=== PATIENT | female | born 1945 | race African-American/Black ===

== ENCOUNTER 2017-03-11 20:44 | Inpatient (IN) | payer MEDICARE ==
[~2017-03-11] VITALS: Ht 170.2 cm; Wt 84.8 kg
[2017-03-11] VITALS: BP 138/61
[2017-03-11 20:00] VITALS: BP 140/61
[2017-03-11] MEDS ORDERED: Potassium Chloride 10 MEQ in D5 1/2NS 1,000 ML IV SCH (21:45)
[2017-03-11] MEDS: Heparin 5000 units/ml inj SUBQ SCH (22:00)
[2017-03-11] MEDS: D5 1/2NS 1,000 ML IV SCH (22:46)
[2017-03-12] VITALS: BP 138/61
[2017-03-12 04:29] VITALS: BP 133/65
[2017-03-12 05:21] LABS: APPEARANCE,URINE CLEAR; KETONES,URINE NEGATIVE (NEGATIVE); LEUKOCYTE ESTERASE ,URINE 3+ (NEGATIVE); NITRITE,URINE NEGATIVE (NEGATIVE); PH,URINE 5 (4.5-8.0); PROTEIN,URINE NEGATIVE (NEGATIVE); UROBILINOGEN,URINE NORMAL MG/DL (0.0-1.0)
[2017-03-12] MEDS ORDERED: RIVASTIGMINE3 MG PO (05:21)
[2017-03-12] MEDS ORDERED: IBUPROFEN600 MG ORAL (05:28)
[2017-03-12] MEDS ORDERED: GABAPENTIN100 MG ORAL (05:28)
[2017-03-12] MEDS ORDERED: NAMENDA5 MG ORAL (05:28)
[2017-03-12] MEDS ORDERED: SINEMET 25-1001 EAC1 ORAL (05:28)
[2017-03-12] MEDS ORDERED: LOPRESSOR5 MG/5 ML IV (05:28)
[2017-03-12] MEDS ORDERED: PEPCID40 MG PO (05:28)
[2017-03-12] MEDS ORDERED: Lopressor (05:35)
[2017-03-12] MEDS ORDERED: A AND D (05:35)
[2017-03-12 06:40] LABS: WBC,URINE TNTC /HPF (0 - 2)
[2017-03-12 06:41] LABS: BACTERIA,URINE FEW /HPF; SQUAMOUS EPITHELIAL CELL,UR FEW /LPF (NONE/OCC)
[2017-03-12 08:00] VITALS: BP 150/74
[2017-03-12 08:04] LABS: BASOPHILS % (AUTO) 1.2 % (0.0-2.0); LYMPHOCYTES % (AUTO) 41.4 % (20.0-45.0); MEAN CORPUSCULAR HEMOGLOBIN 25.3 PG (27.0-31.0); MEAN CORPUSCULAR HGB CONC 29.4 G/DL (32.0-36.0); MEAN CORPUSCULAR VOLUME 86 FL (80-99); MONOCYTES % (AUTO) 7.4 % (1.0-10.0); NEUTROPHILS % (AUTO) 49.1 % (45.0-75.0); PLATELET COUNT 255 K/UL (150-450); RED CELL DISTRIBUTION WIDTH 14.4 % (11.6-14.8); WHITE BLOOD COUNT 7.5 K/UL (4.8-10.8)
[2017-03-12 08:13] LABS: ANION GAP 9 mmol/L (5-15); CALCIUM 9.3 MG/DL (8.5-10.1); CARBON DIOXIDE 27 MMOL/L (21-32); CHLORIDE 102 MMOL/L (98-107); CREATININE 0.8 MG/DL (0.55-1.30); GLOMERULAR FILTRATION RATE > 60 mL/min (>60); POTASSIUM 4.4 MMOL/L (3.5-5.1); SODIUM 138 MMOL/L (136-145)
[2017-03-12] MEDS: Memantine 5 MG TAB ORAL SCH ×2 (09:05→17:26)
[2017-03-12] MEDS: Exelon 1.5mg cap ORAL SCH ×2 (09:05→17:26)
[2017-03-12] MEDS: Sinemet 25/100 tab ORAL SCH ×3 (09:05→20:46)
[2017-03-12] MEDS: Metoprolol 25mg tab ORAL SCH (09:09)
[2017-03-12] MEDS: Heparin 5000 units/ml inj SUBQ SCH ×2 (09:10→20:48)
[2017-03-12] MEDS: Vitamin A&D Oint 2oz Tube TOPIC SCH (09:18)
--- NOTE | 2017-03-12 11:30 | Consultation ---
History of Present Illness Present Illness HPI 71 yo female with mmp Allergies: Coded Allergies: No Known Allergies (Unverified , 03/11/17) Medication History Scheduled Carbidopa/Levodopa 25-100 Mg* (Sinemet 25-100 Mg Tablet*), 1 TAB ORAL THREE TIMES A DAY, (Reported) Famotidine (Pepcid), 40 MG PO QHS, (Reported) Gabapentin* (Gabapentin*), 100 MG ORAL THREE TIMES A DAY, (Reported) Memantine Hcl* (Namenda*), 5 MG ORAL TWICE A DAY, (Reported) Scheduled PRN Ibuprofen* (Motrin*), 600 MG ORAL Q6H PRN for For Pain, (Reported) Miscellaneous Medications Rivastigmine Tartrate (Rivastigmine), 3 MG PO, (Reported) [A and D Ointment], (Reported) [Lopressor ], (Reported) Patient History Healthcare decision maker N Resuscitation status Advanced Directive on File Physical Exam Last 24 Hour Vital Signs Date Time Temp Pulse Resp B/P (MAP) Pulse Ox O2 Delivery O2 Flow Rate FiO2 03/12/17 09:09 92 150/74 03/12/17 08:00 97.7 92 20 150/74 98 03/12/17 04:29 97.8 84 19 133/65 97 03/12/17 00:00 97.8 83 20 138/61 96 03/11/17 20:00 98.1 88 20 140/61 96 Intake and Output 03/12/17 03/13/17 19:00 07:00 Intake Total 240 ml Balance 240 ml Intake Oral 240 ml # Voids 2 Laboratory Tests Test 03/12/17 05:00 03/12/17 06:52 Urine Color Pale yellow Urine Appearance Clear Urine pH 5 (4.5-8.0) Urine Specific [place] 1.010 (1.005-1.035) Urine Protein Negative (NEGATIVE) Urine Glucose (UA) Negative (NEGATIVE) Urine Ketones Negative (NEGATIVE) Urine Occult Blood 1+ (NEGATIVE) H Urine Nitrite Negative (NEGATIVE) Urine Bilirubin Negative (NEGATIVE) Urine Urobilinogen Normal MG/DL (0.0-1.0) Urine Leukocyte Esterase 3+ (NEGATIVE) H Urine RBC 2-4 /HPF (0 - 2) H Urine WBC Tntc /HPF (0 - 2) H Urine Squamous Epithelial Cells Few /LPF (NONE/OCC) Urine Bacteria Few /HPF (NONE) White Blood Count 7.5 K/UL (4.8-10.8) Red Blood Count 5.00 M/UL (4.20-5.40) Hemoglobin 12.7 G/DL (12.0-16.0) Hematocrit 43.1 % (37.0-47.0) Mean Corpuscular Volume 86 FL (80-99) Mean Corpuscular Hemoglobin 25.3 PG (27.0-31.0) L Mean Corpuscular Hemoglobin Concent 29.4 G/DL (32.0-36.0) L Red Cell Distribution Width 14.4 % (11.6-14.8) Platelet Count 255 K/UL (150-450) Mean Platelet Volume 6.0 FL (6.5-10.1) L Neutrophils (%) (Auto) 49.1 % (45.0-75.0) Lymphocytes (%) (Auto) 41.4 % (20.0-45.0) Monocytes (%) (Auto) 7.4 % (1.0-10.0) Eosinophils (%) (Auto) 1.0 % (0.0-3.0) Basophils (%) (Auto) 1.2 % (0.0-2.0) Sodium Level 138 MMOL/L (136-145) Potassium Level 4.4 MMOL/L (3.5-5.1) Chloride Level 102 MMOL/L (98-107) Carbon Dioxide Level 27 MMOL/L (21-32) Anion Gap 9 mmol/L (5-15) Blood Urea Nitrogen 9 mg/dL (7-18) Creatinine 0.8 MG/DL (0.55-1.30) Estimat Glomerular Filtration Rate > 60 mL/min (>60) Glucose Level 127 MG/DL (74-106) H Calcium Level 9.3 MG/DL (8.5-10.1) Height (Feet): 5 Height (Inches): 7.00 Weight (Pounds): 187 Medications Current Medications Medications (Trade) Dose Ordered Sig/Viktoria Route PRN Reason Start Time Stop Time Status Last Admin Dose Admin Carbidopa/Levodopa (Sinemet 25/100) 1 ea TID@0900,1500,2100 ORAL 03/12/17 09:00 04/11/17 08:59 03/12/17 09:05 Dextrose/Sodium Chloride 1,000 ml @ 75 mls/hr [id number] IV 03/11/17 22:00 04/10/17 21:59 03/11/17 22:46 Gabapentin (Neurontin) 100 mg THREE TIMES A DAY ORAL 03/12/17 09:00 04/11/17 08:59 03/12/17 09:09 Heparin Sodium (Porcine) (Heparin 5000 units/ml) 5,000 units EVERY 12 HOURS SUBQ 03/11/17 22:00 04/10/17 21:59 03/12/17 09:10 Ibuprofen (Motrin) 600 mg Q6H PRN ORAL For Pain 03/12/17 02:00 04/11/17 01:59 Memantine (Namenda) 5 mg BID ORAL 03/12/17 09:00 04/11/17 08:59 03/12/17 09:05 Metoprolol Tartrate (Lopressor) 25 mg DAILY ORAL 03/12/17 09:00 04/11/17 08:59 03/12/17 09:09 Ranitidine HCl (Zantac) 150 mg BID ORAL 03/12/17 09:00 04/11/17 08:59 03/12/17 09:05 Rivastigmine Tartrate (Exelon) 3 mg TWICE A DAY ORAL 03/12/17 09:00 04/11/17 08:59 03/12/17 09:05 Vitamin A/Vitamin D (A & D Oint) 1 applic DAILY TOPIC 03/12/17 09:00 04/11/17 08:59 03/12/17 09:18 Ankit Montalvo M.D. Mar 12, 2017 11:30
[2017-03-12 12:00] VITALS: BP 152/64
[2017-03-12] MEDS: D5 1/2NS 1,000 ML IV SCH ×2 (12:17→23:37)
--- NOTE | 2017-03-12 13:41 | History and Physical ---
History of Present Illness General Date patient seen: Mar 12, 2017 Time patient seen: 13:41 Reason for Hospitalization: AMS, failure to thrive Present Illness HPI 71y/o female with pmh of Parkinson's disease, dementia, GERD, HTN who presents with increased confusion and weakness. Pt noted to be more confused compared to baseline. Per SNF reports, pt with decline in function. Also weaker with decreased PO intake. No reports of f/c, n/v, d/c, chest pain, SOB. History limited given pt with dementia. No family/friends available. Called pt's daughter and friend on file but no response yet. Allergies: Coded Allergies: No Known Allergies (Unverified , 03/11/17) Medication History Scheduled Carbidopa/Levodopa 25-100 Mg* (Sinemet 25-100 Mg Tablet*), 1 TAB ORAL THREE TIMES A DAY, (Reported) Famotidine (Pepcid), 40 MG PO QHS, (Reported) Gabapentin* (Gabapentin*), 100 MG ORAL THREE TIMES A DAY, (Reported) Memantine Hcl* (Namenda*), 5 MG ORAL TWICE A DAY, (Reported) Scheduled PRN Ibuprofen* (Motrin*), 600 MG ORAL Q6H PRN for For Pain, (Reported) Miscellaneous Medications Rivastigmine Tartrate (Rivastigmine), 3 MG PO, (Reported) [A and D Ointment], (Reported) [Lopressor ], (Reported) Patient History History Provided By: Patient, Medical Record, PMD Healthcare decision maker N Resuscitation status Advanced Directive on File Past Medical/Surgical History Past Medical/Surgical History: (1) HTN (hypertension) (2) GERD (gastroesophageal reflux disease) (3) Parkinsons disease (4) Dementia Family History Family History: Patient reports no known family medical history. Social History Social History: (1) lives at snf Review of Systems ROS Narrative Unable to obtain given pt with AMS Physical Exam Physical Exam Narrative General: alert, cooperative, no distress, appears stated age, A&Ox1-2 (able to state name, month, president, but not day/year, location) Head: normocephalic, without obvious abnormality, atraumatic Eyes: conjunctivae/corneas clear. PERRL, EOM's intact Throat: lips, mucosa, and tongue normal. MMM Neck: supple, symmetrical, trachea midline, and no JVD Lungs: clear to auscultation bilaterally Heart: regular rate and rhythm, S1, S2 normal, no murmur, click, rub or gallop Abdomen: soft, non-tender, non-distended, bowel sounds normal; no masses or organomegaly Extremities: +LLE amputation stump c/d/i Pulses: 2+ and symmetric Skin: skin color, texture, turgor normal; no rashes or lesions Neurologic: grossly normal, no focal deficits Last 24 Hour Vital Signs Date Time Temp Pulse Resp B/P (MAP) Pulse Ox O2 Delivery O2 Flow Rate FiO2 03/12/17 12:00 97.9 92 20 152/64 96 03/12/17 09:09 92 150/74 03/12/17 08:00 97.7 92 20 150/74 98 03/12/17 04:29 97.8 84 19 133/65 97 03/12/17 00:00 97.8 83 20 138/61 96 03/11/17 20:00 98.1 88 20 140/61 96 Intake and Output 03/12/17 03/13/17 19:00 07:00 Intake Total 240 ml Balance 240 ml Intake Oral 240 ml # Voids 4 Laboratory Tests Test 03/12/17 05:00 03/12/17 06:52 Urine Color Pale yellow Urine Appearance Clear Urine pH 5 (4.5-8.0) Urine Specific [place] 1.010 (1.005-1.035) Urine Protein Negative (NEGATIVE) Urine Glucose (UA) Negative (NEGATIVE) Urine Ketones Negative (NEGATIVE) Urine Occult Blood 1+ (NEGATIVE) H Urine Nitrite Negative (NEGATIVE) Urine Bilirubin Negative (NEGATIVE) Urine Urobilinogen Normal MG/DL (0.0-1.0) Urine Leukocyte Esterase 3+ (NEGATIVE) H Urine RBC 2-4 /HPF (0 - 2) H Urine WBC Tntc /HPF (0 - 2) H Urine Squamous Epithelial Cells Few /LPF (NONE/OCC) Urine Bacteria Few /HPF (NONE) White Blood Count 7.5 K/UL (4.8-10.8) Red Blood Count 5.00 M/UL (4.20-5.40) Hemoglobin 12.7 G/DL (12.0-16.0) Hematocrit 43.1 % (37.0-47.0) Mean Corpuscular Volume 86 FL (80-99) Mean Corpuscular Hemoglobin 25.3 PG (27.0-31.0) L Mean Corpuscular Hemoglobin Concent 29.4 G/DL (32.0-36.0) L Red Cell Distribution Width 14.4 % (11.6-14.8) Platelet Count 255 K/UL (150-450) Mean Platelet Volume 6.0 FL (6.5-10.1) L Neutrophils (%) (Auto) 49.1 % (45.0-75.0) Lymphocytes (%) (Auto) 41.4 % (20.0-45.0) Monocytes (%) (Auto) 7.4 % (1.0-10.0) Eosinophils (%) (Auto) 1.0 % (0.0-3.0) Basophils (%) (Auto) 1.2 % (0.0-2.0) Sodium Level 138 MMOL/L (136-145) Potassium Level 4.4 MMOL/L (3.5-5.1) Chloride Level 102 MMOL/L (98-107) Carbon Dioxide Level 27 MMOL/L (21-32) Anion Gap 9 mmol/L (5-15) Blood Urea Nitrogen 9 mg/dL (7-18) Creatinine 0.8 MG/DL (0.55-1.30) Estimat Glomerular Filtration Rate > 60 mL/min (>60) Glucose Level 127 MG/DL (74-106) H Calcium Level 9.3 MG/DL (8.5-10.1) Height (Feet): 5 Height (Inches): 7.00 Weight (Pounds): 187 Medications Current Medications Medications (Trade) Dose Ordered Sig/Viktoria Route PRN Reason Start Time Stop Time Status Last Admin Dose Admin Carbidopa/Levodopa (Sinemet 25/100) 1 ea TID@0900,1500,2100 ORAL 03/12/17 09:00 04/11/17 08:59 03/12/17 09:05 Dextrose/Sodium Chloride 1,000 ml @ 75 mls/hr [id number] IV 03/11/17 22:00 04/10/17 21:59 03/12/17 12:17 Gabapentin (Neurontin) 100 mg THREE TIMES A DAY ORAL 03/12/17 09:00 04/11/17 08:59 03/12/17 09:09 Heparin Sodium (Porcine) (Heparin 5000 units/ml) 5,000 units EVERY 12 HOURS SUBQ 03/11/17 22:00 04/10/17 21:59 03/12/17 09:10 Ibuprofen (Motrin) 600 mg Q6H PRN ORAL For Pain 03/12/17 02:00 04/11/17 01:59 Memantine (Namenda) 5 mg BID ORAL 03/12/17 09:00 04/11/17 08:59 03/12/17 09:05 Metoprolol Tartrate (Lopressor) 25 mg DAILY ORAL 03/12/17 09:00 04/11/17 08:59 03/12/17 09:09 Ranitidine HCl (Zantac) 150 mg BID ORAL 03/12/17 09:00 04/11/17 08:59 03/12/17 09:05 Risperidone (RisperDAL) 1 mg BEDTIME ORAL 03/12/17 21:00 04/11/17 20:59 Rivastigmine Tartrate (Exelon) 3 mg TWICE A DAY ORAL 03/12/17 09:00 04/11/17 08:59 03/12/17 09:05 Vitamin A/Vitamin D (A & D Oint) 1 applic DAILY TOPIC 03/12/17 09:00 04/11/17 08:59 03/12/17 09:18 Assessment/Plan Problem List: (1) Acute encephalopathy ICD Codes: G93.40 - Encephalopathy, unspecified SNOMED: 0424040 (2) Failure to thrive in adult ICD Codes: R62.7 - Adult failure to thrive SNOMED: 466685638 (3) HTN (hypertension) ICD Codes: I10 - Essential (primary) hypertension SNOMED: 73358624 (4) GERD (gastroesophageal reflux disease) ICD Codes: K21.9 - Gastro-esophageal reflux disease without esophagitis SNOMED: 867781017 (5) Parkinsons disease ICD Codes: G20 - Parkinson's disease SNOMED: 41093735 (6) Dementia ICD Codes: F03.90 - Unspecified dementia without behavioral disturbance SNOMED: 91108470 Status: stable Assessment/Plan Admit inpt Will send metabolic workup for reversible causes of AMS: B12/folate, TSH, RPR, U /A, Vit D Neuro and psych eval Cont home meds Nutritional eval PT/OT Swallow eval Pain control, bowel regimen Supportive care DVT Prophylaxis: SCD, HSQ Code Status: Full Hospital Classification Declaration: Based on this initial evaluation, and depending on the patient's clinical course, I anticipate that this patient will require hospitalization for 2-3 days for AMS and close respiratory/hemodynamic monitoring. Disposition: Once the patient is stable to leave the hospital, I anticipate the patient will likely be discharged to the following environment: back to SNF I spent 70 minutes on this patient's case, and 36 minutes were dedicated to counseling and/or care coordination. Discussed with patient/family, nursing staff, SW/CM, psych regarding clinical status, treatment course, and disposition planning. Time of note may not reflect time of encounter. Alex Sanon M.D. Mar 12, 2017 13:41
--- NOTE | 2017-03-12 14:11 | Wound Care Consultation ---
Wound Assessment Wound Assessment : Wound Number: 1 Wound Present on Admission: Yes New Wound: No Status Change of Wound: No Wound Location Body Site Modif: right Wound Location Body Site: toe - 1st tip of toe Wound Type: other - dry scaly skin with redness Anibal Test: Does not Anibal Percent of Wound [place]/Red: 100 Wound Drainage Amount: None Wound Drainage Odor: None/Absent Tissue Surrounding Wound: Intact Wound General Appearance: Reddened, Open to air, Bone Palpable, Clean/Dry Wound Comment #1 right 1st tip of toe dry,scaly skin with redness. noted bony area palpable not visible ,skin intact, patient denies and pain or discomfort to site. Recommendation -Local wound care as ordered. -Monitor site for any changes to skin and notify MD -Offload. -Avoid friction. -Optimize nutrition. -Keep skin moisturized. JENNIFER SCHAEFFER Mar 12, 2017 14:11
[2017-03-12] MEDS ORDERED: Sinemet 25/100 tab ORAL SCH (14:30)
[2017-03-12 15:42] LABS: THYROID STIMULATING HORMONE 1.095 uiU/mL (0.358-3.740)
[2017-03-12 16:00] VITALS: BP 147/63
[2017-03-12 16:01] LABS: FOLIC ACID 17.9 NG/ML (8.6-58.9)
--- NOTE | 2017-03-12 16:18 | Diagnostic Imaging Report ---
Indication: Chest pain Technique: One view of the chest Comparison: none Findings: Lungs and pleural spaces are clear. Heart size is normal. Impression: No acute process
[2017-03-12] MEDS ORDERED: Norco 10mg/325mg tab ORAL PRN (16:45)
[2017-03-12] MEDS ORDERED: Norco 5mg/325mg tab ORAL PRN (16:45)
[2017-03-12] MEDS ORDERED: Zolpidem 5mg tab ORAL PRN (16:45)
--- NOTE | 2017-03-12 17:00 | Consultation ---
Consult Note Consult Note NEUROLOGY CONSULTATION: Full note dictated #[id number] 71 y/o, RH, BF with PH of HTN, PD, Dementia with behavioral problems, left AKA who was hospitalized for an alteration in MS. Patient was oblivious of the problem and could not give any further Hx. ON EXAM: Problems with orientation, recent and remote memory, VSF, HCF and language. Trace left VII central. Left FE weakness. Globally diminished DTRs Clumsy Finger to nose on left. No parkinsonian signs. IMPRESSION: 1. Altered mental state most probably due to toxic encephalopathy related to UTI. 2. 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 No parkinsonian signs - suspect Dx vs excellent control with Sinemet. 4. Left body focal findings unexplained - suspect intracranial pathology. REC; 1. Continue present Rx. 2. In the future give therapeutic doses of Exelon and Namenda. 3. Brain MRI. 4. EEG. 5. Observe. Laury Pemberton M.D., M.S.P.H. LAURY PEMBERTON Mar 12, 2017 17:00
[2017-03-12] MEDS: Docusate 100mg cap ORAL SCH (17:26)
[2017-03-12 20:38] VITALS: BP 150/57
[2017-03-13 00:43] VITALS: BP 138/53
--- NOTE | 2017-03-13 01:45 | Consultation ---
DATE OF CONSULTATION: 03/12/2017 NEUROLOGICAL CONSULTATION CONSULTING PHYSICIAN: Julio Pemberton M.D. REQUESTING PHYSICIAN: Alex Sanon M.D. HISTORY: Ms. Kaur Becerra is a 71-year-old, right-handed, black lady, who does have a past history of hypertension, Parkinson's disease, dementia with behavioral problems with the type of dementia unclear, left above knee amputation, and gastroesophageal reflux disease. She apparently lives in a skilled nursing, where she was noted to be much more confused compared to her baseline. As a result of that, she was sent to the [facility] Emergency Room and has since been admitted for altered mental state. This consultation was requested to evaluate the patient from a neurological point of view for altered mental state. The patient herself is unable to give me much of her history. She denies any weakness on one side or the other, numbness on one side or the other, problems with speech, problems with language, problems with vision, tremor, stiffness or problems with walking. However when she was made aware that her left leg was missing, she could not tell me when she walked last. PAST MEDICAL HISTORY: Significant for hypertension, Parkinson's disease, dementia with behavioral problem, left above knee amputation, and gastroesophageal reflux disease. FAMILY HISTORY: Nothing significant as per the patient, but quite unreliable. PERSONAL HISTORY: Home: She lives in a skilled nursing. 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 Habits: She used to smoke and drink in the past, but cannot remember for how long she did that and when she stopped. She denies use of any illicit drugs. PRESENT MEDICATIONS: Risperidone 1 mg at bedtime, Sinemet 25/100 mg three times a day, rivastigmine 3 mg twice a day, memantine 5 mg twice a day, gabapentin 100 mg 3 times a day, Lopressor, Zantac, ibuprofen p.r.n. and heparin for DVT prophylaxis. PHYSICAL EXAMINATION: GENERAL: She is a well-developed, well-nourished, pleasant black lady, lying in bed, in no acute distress. VITAL SIGNS: Pulse 83 per minute and regular, blood pressure 147/63 mmHg, respirations 18 per minute, and temperature 97.7 degrees Fahrenheit. HEAD: Normocephalic and atraumatic. EENT: Examination benign. NECK: No neck rigidity was observed. NEUROLOGICAL EXAMINATION: MENTAL STATUS EXAMINATION: She was awake and alert. She was oriented to self and March. She did not know the date, year or where she was located. She was able to recall 3/3 words immediately, but could only remember 2/3 words in 1 minute and 3 minutes even on the third trial. She was able to remember president Trump but could not remember presidents prior to that. Her mathematical skills were impaired. Her visuospatial function was also impaired. SPEECH: She had a mild dysarthria. LANGUAGE: She had anomia for low-frequency words. CRANIAL NERVE EXAMINATION: II: The visual gil intact on confrontation testing. III, IV & : External ocular movements were full and the pupils 3 mm in diameter, equal, round, regular, and reactive to light. V: She had normal facial sensations and the temporales, masseters, and pterygoids functioned normally. VII: She had mild flattening of the left nasolabial fold. VIII: She was able to hear well bilaterally and had no nystagmus. IX: The palate moved symmetrically on phonation. X: She had no hoarseness of voice. XI: The sternocleidomastoids and trapezii functioned normally. XII: The tongue was in the midline without any fasciculations or atrophy. MOTOR SYSTEM: The tone was normal in all four extremities. Examination of muscle mass revealed no focal wasting. 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 Examination of power revealed grade 5/5 power except for grade 4+/5 power in the left finger extensors. SENSORY EXAMINATION: She had intact sensations to pinprick, light touch, and graphesthesia. COORDINATION: She performed well on [id number]-[id number] testing on the right side. On the left side, she was clumsy. REFLEXES: Trace + and bilaterally symmetrical at the biceps, triceps, brachioradialis, and right knee, 0 at the right ankle. The plantar response was flexor on the right side. STANCE & GAIT: Could not be tested. DIAGNOSTIC IMPRESSION: 1. Ms. 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 2. On neurological examination, at this time, she does have problems with orientation, recent and remote memory, visuospatial function, higher cognitive function, and language. She also has a mild dysarthria, trace left seventh central facial paresis, left finger extensor weakness, clumsy [id number] testing on the left side with normal testing on the right side, globally diminished deep tendon reflexes, but no parkinsonian signs. 3. Laboratory data obtained thus far have revealed a relatively normal CBC, a chemistry panel with a blood glucose elevated to 127, normal B12 level, normal folate level, and normal TSH. 4. The urinalysis reveals 3+ leukocyte esterase, 2 to 4 red blood cells per high-power field, and too numerous to count white blood cells per high-power field. 5. The patient's history, neurological examination, and laboratory data are most compatible with an altered mental state, most probably related to a toxic encephalopathy related to her urinary tract infection. 6. The patient also seems to have an underlying dementia. The dementia is most probably of a mixed nature with a combination of Alzheimer's disease and a vascular process. 7. The patient does carry a diagnosis of Parkinson's disease, however she has no parkinsonian signs at this point in time. The diagnosis is thus suspect. A less likely reason for the absence of Parkinson's signs would be excellent control of parkinsonian signs with the Sinemet. 8. The patient does have left body focal neurological findings including left nasolabial fold flattening, left finger extensor weakness, and clumsy upper extremity movements on [id number]-ie-kymn testing. These findings are unexplained at this point in time, but may be indicative of intracranial pathology. The exact details of which are unknown to us. RECOMMENDATIONS: 1. Agree with management thus far. 2. Would treat the patient's urinary tract infection in an aggressive manner. 3. In the future, it may be worth increasing the patient's Exelon and Namenda to therapeutic doses. 4. An MRI scan of the brain will be ordered to evaluate the patient for left body focal findings. 5. An EEG will be ordered to evaluate the patient for the degree and type of encephalopathy. 6. If the patient does have left leg prosthesis, it should be obtained so that she can be mobilized with physical therapy. 7. The patient will be observed closely and depending on how she fares over the next day or so, further recommendations will be given. Thank you for entrusting me with the care of Ms. Weiner. I shall follow her with you. Julio Pemberton M.D., M.S.P.H. DR: Colette JOB#: [id number]
[2017-03-13 04:17] VITALS: BP 140/59
[2017-03-13 08:00] VITALS: BP 134/61
[2017-03-13] MEDS: Exelon 1.5mg cap ORAL SCH ×2 (08:42→17:29)
[2017-03-13] MEDS: Docusate 100mg cap ORAL SCH ×2 (08:42→17:29)
[2017-03-13] MEDS: Memantine 5 MG TAB ORAL SCH ×2 (08:42→17:29)
[2017-03-13] MEDS: Sinemet 25/100 tab ORAL SCH ×3 (08:42→21:09)
[2017-03-13] MEDS: Vitamin A&D Oint 2oz Tube TOPIC SCH (08:42)
[2017-03-13] MEDS: Metoprolol 25mg tab ORAL SCH (08:43)
[2017-03-13] MEDS: Heparin 5000 units/ml inj SUBQ SCH ×2 (08:46→21:10)
--- NOTE | 2017-03-13 10:35 | Diagnostic Imaging Report ---
Indication: Altered mental status and weakness, possible CVA Technique: sagittal T1 fast spin echo, axial T1 FLAIR, axial T2 FLAIR, axial T2 FS PROPELLER, axial T2* GRE, axial diffusion weighted images. ADC and exponential ADC maps generated Comparison: None Findings: No abnormal areas of restricted diffusion to suggest acute infarction. No acute hemorrhage or edema. No mass effect nor midline shift. There is mild age-related enlargement of the ventricles and extra axial CSF spaces. There is mild bilateral periventricular T2 hyperintensity. Visualized orbits and sinuses are unremarkable. The vascular flow voids are preserved Anterior to the middle fossa, posterior and inferior to the posterior left orbit, there is a ovoid focus of intermediate signal, surrounded by fluid signal. Impression: Mild chronic and age-related changes, as described Negative for acute intracranial bleed, mass effect, or infarct Unusual apparent fluid and soft tissue abnormality posterior and inferior to the left orbit, as described. Possibly an extension of the left sphenoid sinus with fluid and a polyp. Recommend facial CT for better characterization
[2017-03-13 12:00] VITALS: BP 161/72
--- NOTE | 2017-03-13 12:22 | General Progress Note ---
Assessment/Plan Problem List: (1) Acute encephalopathy ICD Codes: G93.40 - Encephalopathy, unspecified SNOMED: 4108389 (2) UTI (urinary tract infection) ICD Codes: N39.0 - Urinary tract infection, site not specified SNOMED: 37318004 (3) Failure to thrive in adult ICD Codes: R62.7 - Adult failure to thrive SNOMED: 908488248 (4) HTN (hypertension) ICD Codes: I10 - Essential (primary) hypertension SNOMED: 71455789 (5) GERD (gastroesophageal reflux disease) ICD Codes: K21.9 - Gastro-esophageal reflux disease without esophagitis SNOMED: 897710593 (6) Parkinsons disease ICD Codes: G20 - Parkinson's disease SNOMED: 20491926 (7) Dementia ICD Codes: F03.90 - Unspecified dementia without behavioral disturbance SNOMED: 44268700 Status: stable Assessment/Plan Start ceftriaxone for UTI Metabolic workup thus far unremarkable, f/u Vit D level Neuro and psych consulted, appreciate rec's F/u MRI brain F/u EEG Cont home meds Nutritional eval PT/OT Swallow eval Pain control, bowel regimen Supportive care DC planning, likely back to SNF tomorrow DVT Prophylaxis: SCD, HSQ Code Status: Full Hospital Classification Declaration: Based on this initial evaluation, and depending on the patient's clinical course, I anticipate that this patient will require hospitalization for 1-2 days for AMS and close respiratory/hemodynamic monitoring. Disposition: Once the patient is stable to leave the hospital, I anticipate the patient will likely be discharged to the following environment: back to SNF Discussed with patient/family, nursing staff, SW/CM, psych, neuro regarding clinical status, treatment course, and disposition planning. Time of note may not reflect time of encounter. Subjective Date patient seen: Mar 13, 2017 Time patient seen: 12:22 ROS Limited/Unobtainable: Yes Allergies: Coded Allergies: No Known Allergies (Unverified , 03/11/17) Subjective No acute o/n events Seen by neurology, MRI brain and EEG ordered Pt awake, alert, confused. Able to state name and month but not day/year, location Denies f/c, n/v, d/c, chest pain, SOB No reports of agitation Objective Last 24 Hour Vital Signs Date Time Temp Pulse Resp B/P (MAP) Pulse Ox O2 Delivery O2 Flow Rate FiO2 12/7/17 08:43 97 134/61 03/13/17 08:00 97.2 97 18 134/61 96 Room Air 03/13/17 04:17 97.5 85 19 140/59 93 03/13/17 00:43 97.8 82 18 138/53 98 03/12/17 20:38 97.5 82 19 150/57 92 03/12/17 16:00 97.7 83 18 147/63 98 Laboratory Tests 03/12/17 14:52: Vitamin B12 Level 871, Vitamin D 25-Hydroxy [Pending], 25-Hydroxy Vitamin D2 [ Pending], 25-Hydroxy Vitamin D3 [Pending], Folate 17.9, Thyroid Stimulating Hormone (TSH) 1.095, Rapid Plasma Reagin Non reactive Height (Feet): 5 Height (Inches): 7.00 Weight (Pounds): 187 Objective General: alert, cooperative, no distress, appears stated age, A&Ox1-2 (name, month only) Head: normocephalic, without obvious abnormality, atraumatic Eyes: conjunctivae/corneas clear. PERRL, EOM's intact Throat: lips, mucosa, and tongue normal. MMM Neck: supple, symmetrical, trachea midline, and no JVD Lungs: clear to auscultation bilaterally Heart: regular rate and rhythm, S1, S2 normal, no murmur, click, rub or gallop Abdomen: soft, non-tender, non-distended, bowel sounds normal; no masses or organomegaly Extremities: extremities normal, atraumatic, no cyanosis or edema Pulses: 2+ and symmetric Skin: skin color, texture, turgor normal; no rashes or lesions Neurologic: grossly normal, no focal deficits Alex Sanon M.D. Mar 13, 2017 12:22
--- NOTE | 2017-03-13 12:59 | Neurology Progress Note ---
Interim History Interim History Interim History Ms. Becerra feels better today. She feels that her mind is clear She has not noticed any new neurologic symptoms. She continues to be forgetful. She continues to be cognitively impoverished. She is not exhibiting any parkinsonian signs. Review of Systems Neuro Review of Systems Benign. Objective Physical Exam Last Vital Signs Date Time Temp Pulse Resp B/P (MAP) Pulse Ox O2 Delivery O2 Flow Rate FiO2 03/13/17 12:00 96.4 94 19 161/72 96 Room Air Laboratory Tests Test 03/12/17 14:52 Vitamin B12 Level 871 PG/ML (193-986) Vitamin D 25-Hydroxy Pending 25-Hydroxy Vitamin D2 Pending 25-Hydroxy Vitamin D3 Pending Folate 17.9 NG/ML (8.6-58.9) Thyroid Stimulating Hormone (TSH) 1.095 uiU/mL (0.358-3.740) Rapid Plasma Reagin Non reactive (Non Reactive) Neurologic Exam Objective PHYSICAL EXAMINATION: GENERAL: She is a well-developed, well-nourished, pleasant black lady, lying in bed, in no acute distress. HEAD: Normocephalic and atraumatic. EENT: Examination benign. NECK: No neck rigidity was observed. NEUROLOGICAL EXAMINATION: MENTAL STATUS EXAMINATION: She was awake and alert. She was oriented to self and March. She did not know the date, year or where she was located. She was able to recall 3/3 words immediately, but could only remember 2/3 words in 1 minute and 3 minutes even on the third trial. She was able to remember president Trump but could not remember presidents prior to that. Her mathematical skills were impaired. Her visuospatial function was also impaired. SPEECH: She had a mild dysarthria. LANGUAGE: She had anomia for low-frequency words. CRANIAL NERVE EXAMINATION: II: The visual gil intact on confrontation testing. III, IV & : External ocular movements were full and the pupils 3 mm in diameter, equal, round, regular, and reactive to light. V: She had normal facial sensations and the temporales, masseters, and pterygoids functioned normally. VII: She had mild flattening of the left nasolabial fold. VIII: She was able to hear well bilaterally and had no nystagmus. IX: The palate moved symmetrically on phonation. X: She had no hoarseness of voice. XI: The sternocleidomastoids and trapezii functioned normally. XII: The tongue was in the midline without any fasciculations or atrophy. MOTOR SYSTEM: The tone was normal in all four extremities. Examination of muscle mass revealed no focal wasting. 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 Examination of power revealed grade 5/5 power except for grade 4+/5 power in the left finger extensors. SENSORY EXAMINATION: She had intact sensations to pinprick, light touch, and graphesthesia. COORDINATION: She performed well on cgkbly-jl-whhf testing on the right side. On the left side, she was clumsy. REFLEXES: Trace + and bilaterally symmetrical at the biceps, triceps, brachioradialis, and right knee, 0 at the right ankle. The plantar response was flexor on the right side. STANCE & GAIT: Could not be tested. Impression/Recommendations Diagnostic Impression 1. Ms. 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 2. She feels better today. She has not noticed any new neurologic symptoms. 3. On neurological examination, at this time, she does have problems with orientation, recent and remote memory, visuospatial function, higher cognitive function, and language. She also has a mild dysarthria, trace left seventh central facial paresis, left finger extensor weakness, clumsy btnwxl-gj-upyn testing on the left side with normal testing on the right side, globally diminished deep tendon reflexes, but no parkinsonian signs. 4. Laboratory data obtained thus far have revealed a relatively normal CBC, a chemistry panel with a blood glucose elevated to 127, normal B12 level, normal folate level, and normal TSH. 5. The urinalysis revealed 3+ leukocyte esterase, 2 to 4 red blood cells per high-power field, and too numerous to count white blood cells per high-power field. 6. The MRI of the brain revealed no acute pathology and mild deep white matter changes. 7. The EEG revealed a mild encephalopathy. 8. The patient's history, neurological examination, and laboratory data are most compatible with an altered mental state, most probably related to a toxic encephalopathy related to her urinary tract infection. 9. The patient also seems to have an underlying dementia. The dementia is most probably due to Alzheimer's disease. 10. The patient does carry a diagnosis of Parkinson's disease, however she has no parkinsonian signs at this point in time. The diagnosis is thus suspect. A less likely reason for the absence of Parkinson's signs would be excellent control of parkinsonian signs with the Sinemet. 11. The patient does have left body focal neurological findings including left nasolabial fold flattening, left finger extensor weakness, and clumsy upper extremity movements on wghces-cl-xlvd testing. These findings are still unexplained. However intracranial structural pathology of significance has been excluded. Recommendations 1. Continue present management. 2. Would treat the patient's urinary tract infection in an aggressive manner. 3. In the future, it may be worth increasing the patient's Exelon and Namenda to therapeutic doses. 4. If the patient does have left leg prosthesis, it should be obtained so that she can be mobilized with physical therapy. 5. Observe closely. Julio Pemberton M.D., M.S.P.JULIO STRONG Mar 13, 2017 12:59
[2017-03-13 16:00] VITALS: BP 147/68
[2017-03-13] MEDS ORDERED: NS 500ML ONE (16:01)
[2017-03-13] MEDS ORDERED: Tubing Blood Filter IV ONE (16:01)
[2017-03-13] MEDS ORDERED: D5 1/2NS 1000ml IV ONE (16:01)
--- NOTE | 2017-03-13 16:57 | Cardiology Report ---
APPROVED REPORT EKG Measurement Heart [id number] WV [id number] [id number] Normal sinus rhythm Left axis deviation Voltage criteria for left ventricular hypertrophy Abnormal ECG
--- NOTE | 2017-03-13 18:30 | Electroencephalogram ---
ELECTROENCEPHALOGRAM REPORT DATE OF PROCEDURE: 03/12/2017 REQUESTING PHYSICIANS: Alex Sanon M.D. & Suzie Lopez M.D. HISTORY: This EEG was performed on a 71-year-old lady who was hospitalized for an alteration in her mental state. The purpose of this EEG was to evaluate the patient for the degree and type of cerebral dysfunction. TECHNICAL NOTE: This EEG was performed on a [employer] with electrodes placed on the scalp according to the International 10-20 system. Etwbd-ze-dynvz and grios-kb-tez montages were used. The EEG was technically satisfactory and was performed in the awake and drowsy states. OBSERVATIONS: In the best-awake state, the background activity consisted of 8-8.5 Hz alpha activity with a moderate amount of intermixed 7 Hz theta activity. Drowsiness was characterized by dissolution of alpha rhythm and the appearance of slow frequencies in the 5-6 Hz theta range. No focal abnormalities or epileptiform discharges were seen. IMPRESSION: This is an abnormal EEG characterized by an unusually large amount of intermixed theta activity seen during the reportedly awake state. COMMENT: This study is consistent with an encephalopathy of a mild degree. Julio Pemberton M.D., M.S.P.H. DR: PEGGY JOB#: [id number] MTDD
[2017-03-13 21:00] VITALS: BP 146/62
[2017-03-14] VITALS: BP 138/65
[2017-03-14 04:00] VITALS: BP 128/57
[2017-03-14 08:27] VITALS: BP 150/68
[2017-03-14] MEDS ORDERED: cefTRIAXone 1 GM in D5W 55 ML IVPB SCH (09:00)
[2017-03-14] MEDS: Sinemet 25/100 tab ORAL SCH ×2 (09:22→15:34)
[2017-03-14] MEDS: Memantine 5 MG TAB ORAL SCH (09:22)
[2017-03-14] MEDS: Exelon 1.5mg cap ORAL SCH (09:22)
[2017-03-14] MEDS: Vitamin A&D Oint 2oz Tube TOPIC SCH (09:22)
[2017-03-14] MEDS: Docusate 100mg cap ORAL SCH (09:22)
[2017-03-14] MEDS: Metoprolol 25mg tab ORAL SCH (09:23)
[2017-03-14] MEDS: Heparin 5000 units/ml inj SUBQ SCH (09:24)
[2017-03-14 11:59] VITALS: BP 139/68
[2017-03-14] MEDS ORDERED: RISPERDAL1 MG ORAL (14:35)
[2017-03-14] MEDS ORDERED: BACTRIM DS TAB1 EAC1 ORAL (14:38)
--- NOTE | 2017-03-14 14:55 | Neurology Progress Note ---
Interim History Interim History Interim History Ms. Becerra feels much better. She feels that her mind is clearer. She has not noticed any new neurologic symptoms. She continues to be forgetful. She continues to be cognitively impoverished. She is not exhibiting any parkinsonian signs. Plans are to send her home today. Review of Systems Neuro Review of Systems Benign. Objective Physical Exam Last Vital Signs Date Time Temp Pulse Resp B/P (MAP) Pulse Ox O2 Delivery O2 Flow Rate FiO2 03/14/17 11:59 97.0 78 20 139/68 97 Room Air Neurologic Exam Objective PHYSICAL EXAMINATION: GENERAL: She is a well-developed, well-nourished, pleasant black lady, lying in bed, in no acute distress. HEAD: Normocephalic and atraumatic. EENT: Examination benign. NECK: No neck rigidity was observed. NEUROLOGICAL EXAMINATION: MENTAL STATUS EXAMINATION: She was awake and alert. She was oriented to self, [facility] and March. She did not know the date or year. She was able to recall 3/3 words immediately, but could only remember 2/3 words in 1 minute and 3 minutes. She was able to remember president Trump and Obama but could not remember presidents prior to that. Her mathematical skills were impaired. Her visuospatial function was also impaired. SPEECH: She had a mild dysarthria. LANGUAGE: She had anomia for low-frequency words. CRANIAL NERVE EXAMINATION: II: The visual gil intact on confrontation testing. III, IV & : External ocular movements were full and the pupils 3 mm in diameter, equal, round, regular, and reactive to light. V: She had normal facial sensations and the temporales, masseters, and pterygoids functioned normally. VII: She had mild flattening of the left nasolabial fold. VIII: She was able to hear well bilaterally and had no nystagmus. IX: The palate moved symmetrically on phonation. X: She had no hoarseness of voice. XI: The sternocleidomastoids and trapezii functioned normally. XII: The tongue was in the midline without any fasciculations or atrophy. MOTOR SYSTEM: The tone was normal in all four extremities. Examination of muscle mass revealed no focal wasting. 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 Examination of power revealed grade 5/5 power except for grade 4+/5 power in the left finger extensors. SENSORY EXAMINATION: She had intact sensations to pinprick, light touch, and graphesthesia. COORDINATION: She performed well on jgrzzd-db-zwfx testing on the right side. On the left side, she was clumsy. REFLEXES: Trace + and bilaterally symmetrical at the biceps, triceps, brachioradialis, and right knee, 0 at the right ankle. The plantar response was flexor on the right side. STANCE & GAIT: Could not be tested. Impression/Recommendations Diagnostic Impression 1. Ms. 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 2. She feels better and brighter today. She has not noticed any new neurologic symptoms. Plans are to go home today. 3. On neurological examination, at this time, she does have problems with orientation, recent and remote memory, visuospatial function, higher cognitive function, and language. She also has a mild dysarthria, trace left seventh central facial paresis, left finger extensor weakness, clumsy jcptkl-ep-jisg testing on the left side with normal testing on the right side, globally diminished deep tendon reflexes, but no parkinsonian signs. 4. Laboratory data obtained thus far have revealed a relatively normal CBC, a chemistry panel with a blood glucose elevated to 127, normal B12 level, normal folate level, and normal TSH. 5. The urinalysis revealed 3+ leukocyte esterase, 2 to 4 red blood cells per high-power field, and too numerous to count white blood cells per high-power field. 6. The MRI of the brain revealed no acute pathology and mild deep white matter changes. 7. The EEG revealed a mild encephalopathy. 8. The patient's history, neurological examination, and laboratory data are most compatible with an altered mental state, most probably related to a toxic encephalopathy related to her urinary tract infection. 9. The patient also seems to have an underlying dementia. The dementia is most probably due to Alzheimer's disease. 10. The patient does carry a diagnosis of Parkinson's disease, however she has no parkinsonian signs at this point in time. The diagnosis is thus suspect. A less likely reason for the absence of Parkinson's signs would be excellent control of parkinsonian signs with the Sinemet. 11. The patient does have left body focal neurological findings including left nasolabial fold flattening, left finger extensor weakness, and clumsy upper extremity movements on zecdoe-zx-fljc testing. These findings are still unexplained. However intracranial structural pathology of significance has been excluded. 12. Her UTI has been treated with antibiotics. Recommendations 1. Continue present management. 2. Continue urinary tract infection treatment in an aggressive manner. 3. In the future, it may be worth increasing the patient's Exelon and Namenda to therapeutic doses. 4. If the patient does have left leg prosthesis, it should be obtained so that she can be mobilized with physical therapy. Julio Pemberton M.D., M.S.P.H. JULIO PEMBERTON Mar 14, 2017 14:55
--- NOTE | 2017-03-14 18:15 | Progress Note ---
DATE: 03/14/2017 SUBJECTIVE: The patient was seen today. The patient is at bedside. The patient today is deteriorating, more confused, more irritable. The patient is not agitated, however, is more paranoid and was more uncooperative. The patient has G-tube and receiving medication, not refusing any medications. MENTAL STATUS EXAMINATION: The patient is alert and oriented to times self, place, and situation. Mood is irritable. Affect is constricted, congruent with mood. Thought process is concrete. Thought content, no suicidal or homicidal ideation. ASSESSMENT: 1. Encephalopathy. 2. Psychotic disorder. PLAN: 1. We will increase the risperidone to 2 mg at bedtime. 2. We will continue follow and readjust the medications. Ankit Montalvo M.D. DR: HEYDI JOB#: [id number] CC:
--- NOTE | 2017-03-14 22:00 | Progress Note ---
DATE: 03/13/2017 SUBJECTIVE: The patient continues to be confused, disoriented, and delusional. During the evaluation, she was calm, however, was not able to answer the questions or being engaged. The patient was evaluated on 03/13/2017. Compliant with medication. No aggressive or violent behavior. MENTAL STATUS EXAMINATION: The patient is alert, oriented to self only. Mood is neutral. Affect is flat. Thought process is concrete. Thought content, no suicidal or homicidal ideation. Cognition is impaired. Insight and judgment impaired. ASSESSMENT: 1. Encephalopathy. 2. Psychotic disorder. PLAN: 1. The patient will be continued on current medications including risperidone 1 mg at bedtime. 2. Provide the patient with supportive therapy and reality orientation. Ankit Montalvo M.D. DR: Jun JOB#: [id number] CC:
--- NOTE | 2017-03-14 22:55 | Discharge Summary ---
Discharge Summary Hospital Course Date of Admission Mar 11, 2017 at 20:44 Date of Discharge Mar 14, 2017 at 17:45 Admitting Diagnosis Acute encephalopathy Reason for Hospitalization: Acute encephalopathy, failure to thrive HPI 71y/o female with pmh of Parkinson's disease, dementia, GERD, HTN who presents with increased confusion and weakness. Pt noted to be more confused compared to baseline. Per SNF reports, pt with decline in function. Also weaker with decreased PO intake. No reports of f/c, n/v, d/c, chest pain, SOB. History limited given pt with dementia. No family/friends available. Called pt's daughter and friend on file but no response yet. Consultations Neurology, Psychiatry Hospital Course Pt was admitted and seen by neurology and psychiatry. Pt w/ e/o L body focal neurological findings including L nasolabial fold flattening, L finger extensor weakness and clumsy upper extremity movements on finger to nose. Pt underwent MRI brain which showed no acute abnormality and EEG which showed e/o encephalopathy but no seizures. Pt found ot have UTI and was initiated on antibiotics. Her mental status improed on slightly. She was seen by PT/OT who recommended SNF. Discharge physical exam General: alert, cooperative, no distress, appears stated age, A&Ox1-2 (name, month only) Head: normocephalic, without obvious abnormality, atraumatic Eyes: conjunctivae/corneas clear. PERRL, EOM's intact Throat: lips, mucosa, and tongue normal. MMM Neck: supple, symmetrical, trachea midline, and no JVD Lungs: clear to auscultation bilaterally Heart: regular rate and rhythm, S1, S2 normal, no murmur, click, rub or gallop Abdomen: soft, non-tender, non-distended, bowel sounds normal; no masses or organomegaly Extremities: extremities normal, atraumatic, no cyanosis or edema Pulses: 2+ and symmetric Skin: skin color, texture, turgor normal; no rashes or lesions Neurologic: grossly normal, no focal deficits Discharge diagnoses (1) Acute encephalopathy ICD Codes: G93.40 - Encephalopathy, unspecified SNOMED: 6955525 (2) UTI (urinary tract infection) secondary to Pseudmonas ICD Codes: N39.0 - Urinary tract infection, site not specified SNOMED: 72191578 (3) Failure to thrive in adult ICD Codes: R62.7 - Adult failure to thrive SNOMED: 490274497 (4) HTN (hypertension) ICD Codes: I10 - Essential (primary) hypertension SNOMED: 81887648 (5) GERD (gastroesophageal reflux disease) ICD Codes: K21.9 - Gastro-esophageal reflux disease without esophagitis SNOMED: 637698322 (6) Parkinsons disease ICD Codes: G20 - Parkinson's disease SNOMED: 70471494 (7) Dementia ICD Codes: F03.90 - Unspecified dementia without behavioral disturbance SNOMED: 10197612 Discharge Medications New Medications: Trimethoprim/Sulfamethoxazole 160/800* (Bactrim Ds Tablet*) 1 Each Tablet 1 TAB ORAL Q12H for 3 Days, #6 TAB 0 Refills Risperidone* (Risperdal*) 1 Mg Tablet 2 MG ORAL BEDTIME for 30 Days, TAB Continued Medications: Carbidopa/Levodopa 25-100 Mg* (Sinemet 25-100 Mg Tablet*) 1 Each Tablet 1 TAB ORAL THREE TIMES A DAY, TAB Famotidine (Pepcid) 40 Mg Tablet 40 MG PO QHS, #7 TAB 0 Refills Gabapentin* (Gabapentin*) 100 Mg Capsule 100 MG ORAL THREE TIMES A DAY, CAP Ibuprofen* (Motrin*) 600 Mg Tablet 600 MG ORAL Q6H PRN for For Pain, #30 TAB Memantine Hcl* (Namenda*) 5 Mg Tablet 5 MG ORAL TWICE A DAY, TAB Rivastigmine Tartrate (Rivastigmine) 3 Mg Capsule 3 MG PO, CAP [A and D Ointment] () [Lopressor ] () Discharge Condition Upon Discharge: stable Discharge Disposition Patient was discharged to SNF/Subacute Facility(03) Discharge Diagnoses: Alex Sanon M.D. Mar 14, 2017 22:55
[2017-03-15 10:13] LABS: VITAMIN D 25-OH TOTAL 22 ng/mL (.)
== END 2017-03-14 17:45 | DRG 71 ==
LOC: 3E 20:44
DX: G93.40 Encephalopathy, unspecified (principal); F03.91 Unspecified dementia, unspecified severity, with behavioral disturbance; G20 Parkinson's disease; N39.0 Urinary tract infection, site not specified; I10 Essential (primary) hypertension; R62.7 Adult failure to thrive; K21.9 Gastro-esophageal reflux disease without esophagitis; Z89.612 Acquired absence of left leg above knee; B96.5 Pseudomonas (aeruginosa) (mallei) (pseudomallei) as the cause of diseases classified elsewhere
CPT/HCPCS: 36415; 70551; 71010; 80048; 81003; 82306; 82607; 82746; 83036; 84443; 85025; 86592; 87086; 87181; 93005; 95819